=== PATIENT | female | born 1970 | race Caucasian/White ===

== ENCOUNTER 2021-04-04 16:54 | Emergency (ER) | payer MEDICAID ==
--- NOTE | 2021-04-04 17:58 | ED Physician Documentation ---
History of Present Illness - Stated complaint Stated Complaint: BILAT LEG SWELL/LT ARM LUMP;HEADACHE - Chief complaint Chief Complaint: General - History obtained from History obtained from: Patient - History of Present Illness Timing: How many weeks ago (2) - Additonal information Additional information: 50-year-old female who has been avoiding going to the doctor has come in to the emergency department today with a chief complaint that a mass that she has had in her forearm on the left side seems to have grown and has now become painful and pain is radiating up into her arm. She states that she has had this fleshy mass for 2 years and it usually has not caused her much in the way of pain. It is now present and whenever she uses her arm to lift something she can feel the pain there. There is no redness associated with it and no overlying swelling. She has been in to see in an emergency department regarding swelling in her legs and this mass and she has been referred back to her primary. She reports that she does frequently fall asleep with her legs in a dependent position. She has a history of rheumatoid arthritis. Review of Systems Constitutional: denies: Fever Eyes: denies: Decreased vision Ears: denies: Ear pain Nose: denies: Congestion Throat: denies: Sore throat Cardiac: denies: Chest pain / pressure, Palpitations Respiratory: denies: Dyspnea, Cough, Wheezing GI: denies: Abdominal Pain, Nausea, Vomiting, Constipation, Diarrhea : denies: Dysuria, Frequency Skin: denies: Rash Musculoskeletal: reports: Extremity pain. denies: Neck pain, Back pain, Joint swelling Neurologic: denies: Generalized weakness, Focal weakness, Numbness PD PAST MEDICAL HISTORY - Allergies Allergies/Adverse Reactions: Allergies Allergy/AdvReac Type Severity Reaction Status Date / Time Penicillins Allergy Hives Verified 04/04/21 17:07 PD ED PE NORMAL - Vitals Vital signs reviewed: Yes (Normal) - General General: Alert and oriented X 3, No acute distress, Well developed/nourished - HEENT HEENT: Atraumatic, PERRL, EOMI - Respiratory Respiratory: No respiratory distress - Derm Derm: Normal color, Warm and dry, Other (The skin of the hands is thick and leathery. The skin over the forearms appears dry. On the left forearm over the brachial radialis there is a palpable mass 1 cm x 5 cm and there is no fluctuance to this it is fleshy in nature not quite as soft as a lipoma. It is anchored to the underlying tissue) - Extremities Extremities: Other (As above the mass is interrogated with ultrasound it is well-defined with borders to it and appears striated. I am uncertain what this represents it is not a fluid collection it is not a cyst. from brachoradialis to the distal arm volar. Bilat LE edema is trace. ) - Neuro Neuro: Alert and oriented X 3, principal automation engineer 2-12 intact, No motor deficit, No sensory deficit, Normal speech Eye Opening: Spontaneous Motor: Obeys Commands Verbal: Oriented GCS Score: 15 - Psych Psych: Normal mood, Normal affect Results - Vitals Vitals: Vital Signs - 24 hr 04/04/21 04/04/21 04/04/21 17:00 17:46 19:22 Temperature 37.1 C 36.6 C Heart Rate 85 88 68 Respiratory 18 15 14 Rate Blood Pressure 130/80 117/76 108/65 O2 Saturation 99 100 99 Oxygen O2 Source Room air Procedures - Bedside sono Bedside sono by EMP: With use of bedside ultrasound and high-frequency probe the area is interrogated and that there does appear to be a well-circumscribed mass under the arm it is not severely tender there is no surrounding fluid the mass appears striated in a specific pattern. PD MEDICAL DECISION MAKING - ED course Complexity details: reviewed results, re-evaluated patient, considered differential, d/w patient ED course: 42-year-old female presents with 2 problems 1 is a mass that she has in her left forearm and the soft tissue that has become painful over time. It is extended in size over time. I have imaged at the bedside with the bedside ultrasound and I have asked the agricultural service technician to image it for a radiology reading. The patient's lower extremity swelling is likely dependent edema as she states that she does frequently fall asleep in her easy chair. I discussed with the patient the use of compression socks and avoidance of dependent edema. I discouraged the use of diuretic. The reading for the mass in the forearm is not available at the time of shift change and the formal read will be explained to the patient by Dr. Loredo. The area looks benign. Departure - Departure Disposition: 01 Home, Self Care Clinical Impression: Dependent edema, Mass of left forearm Condition: Stable Instructions: ED Edema Legs Bilateral Follow-Up: Gerard Servin MD [Primary Care Provider] -
[2021-04-04 19:24] VITALS: BP 108/65
--- NOTE | 2021-04-04 20:05 | Ultrasound Report ---
PROCEDURE: Ext Limited Non Vascular INDICATIONS: mass under skin on left forearm. TECHNIQUE: Real-time scanning was performed of the left, with image documentation. COMPARISON: None. FINDINGS: In the area of concern in the left arm, there is no solid or cystic mass. No fluid collect ion. No abscess. IMPRESSION: No abnormality in the area of clinical concern. Reviewed by: Zackray Masterson on 04/04/2021 8:03 PM PDT Approved by: Zackary Masterson on 04/04/2021 8:03 PM PDT Station ID: [id number]
== END 2021-04-04 20:10 | disposition home or self-care (01) ==
LOC: ED 16:54
DX: R22.32 Localized swelling, mass and lump, left upper limb (principal); R60.0 Localized edema
CPT/HCPCS: 99284

== ENCOUNTER 2021-06-10 13:50 | Outpatient (CLI) | payer MEDICAID ==
[2021-06-10 14:09] LABS: BASOPHILS # (AUTO) 0.1 10^3/uL (0.0-0.1); BASOPHILS % (AUTO) 0.7 %; EOSINOPHILS # (AUTO) 0.2 10^3/uL (0.0-0.7); EOSINOPHILS % (AUTO) 2.2 %; HCT - HEMATOCRIT 42.2 % (37.0-47.0); HGB - HEMOGLOBIN 14.3 g/dL (12.0-16.0); LYMPHOCYTES % (AUTO) 30.4 %; MEAN CORPUSCULAR HEMOGLOBIN 31.8 pg (27.0-31.0); MEAN CORPUSCULAR HGB CONC 33.9 g/dL (32.0-36.0); MEAN CORPUSCULAR VOLUME 93.8 fL (81.0-99.0); MEAN PLATELET VOLUME 9.2 fL (7.9-10.8); MONOCYTES # (AUTO) 0.6 10^3/uL (0.0-1.0); MONOCYTES % (AUTO) 9.6 %; NEUTROPHILS # (AUTO) 3.8 10^3/uL (1.5-6.6); NEUTROPHILS % (AUTO) 56.8 %; PLT - PLATELET COUNT 371 10^3/uL (130-450); RED CELL DISTRIBUTION WIDTH 12.3 % (12.0-15.0); WHITE BLOOD COUNT 6.7 x10^3/uL (4.8-10.8)
[2021-06-10 14:20] LABS: ALBUMIN 3.9 g/dL (3.2-5.5); ALBUMIN/GLOBULIN RATIO 1.3 (1.0-2.2); BILIRUBIN,TOTAL 0.5 mg/dL (0.2-1.0); CALCIUM 9.3 mg/dL (8.5-10.3); CREATININE 0.8 mg/dL (0.4-1.0); POTASSIUM 4.4 mmol/L (3.5-5.0); TOTAL PROTEIN 6.9 g/dL (6.7-8.2)
[2021-06-10] MEDS ORDERED: GADOBUTROL 10 MMOL/10 ML VIAL ONE (14:22)
[2021-06-10] MEDS: GADOBUTROL 10 MMOL/10 ML VIAL IVP ONE (15:38)
--- NOTE | 2021-06-10 15:59 | MRI Report ---
PROCEDURE: Forearm LT W/WO INDICATIONS: FOREARM MASS TECHNIQUE: Noncontrast coronal T1 spin echo and T2 fast spin echo with fat saturation, axial proton density fast spin echo and T2 fast spin echo with fat saturation, axial T1 spin echo with fat saturation, sagitta l T1 spin echo and STIR through the left forearm Post-contrast axial, coronal, and sagittal T1 spin e cho through the left forearm. A marker was placed in the area of clinical concern. COMPARISON: Reference is made to the soft tissue ultrasound dated April 04, 2021. FINDINGS: Image quality: Excellent. Bones: The visualized bone marrow demonstrates normal signal on all sequences. The overlying cortex appears intact. No fractures lines or intra-osseous lesions. Soft tissues: The scanned muscles demonstrate normal overall bulk and internal signal. Subcutaneous tissues appear normal as well. No soft tissue mass or abnormal contrast enhancement is present. IMPRESSION: 1. No significant abnormality. Reviewed by: Shai Beck MD on 06/10/2021 3:58 PM PST Approved by: Shai Beck MD on 06/10/2021 3:58 PM PST Station ID: [id number]
== END 2021-06-10 13:51 | disposition home or self-care (01) ==
LOC: DI 13:50
PROVIDERS: ATTEND Internal Medicine
DX: R22.30 Localized swelling, mass and lump, unspecified upper limb (principal); M05.6 Rheumatoid arthritis with involvement of other organs and systems
CPT/HCPCS: 36415; 73220; 80053; 83615; 85025; 85651; A9585

== ENCOUNTER 2021-07-16 12:44 | Outpatient (CLI) | payer MEDICAID | END 2021-07-16 12:45 | disposition home or self-care (01) | LOC: LAB.S 12:44 | PROVIDERS: ATTEND Surgery | DX: Z01.812 Encounter for preprocedural laboratory examination (principal); R22.32 Localized swelling, mass and lump, left upper limb; Z20.822 Contact with and (suspected) exposure to COVID-19 ==

== ENCOUNTER 2021-07-17 09:37 | Day surgery (SDC) | payer MEDICAID ==
[2021-07-17] MEDS ORDERED: LACTATED RINGERS 1,000 ML IV ONE ×2 (10:22→13:52)
--- NOTE | 2021-07-17 10:45 | ANESTHESIA ---
Pre-Anesthesia VS, & Labs - Diagnosis painful mass in left forarm - Procedure excison painfull mass left forearm Height: 5 ft 6 in Weight (kg): 67 kg Body Mass Index: 23.8 BMI Classification: Healthy weight - NPO >8 hours - Is Patient ?: No Home Medications and Allergies Home Medications: Ambulatory Orders No Known Home Medications 07/15/21 No Known Home Medications 07/15/21 Allergies/Adverse Reactions: Allergies Allergy/AdvReac Type Severity Reaction Status Date / Time Penicillins Allergy Hives Verified 04/04/21 17:07 Anes History & Medical History - Anesthetic History Anesthesia Complications: reports: Post-Operative Nausea/Vomiting - Medical History Cardiovascular: reports: None Pulmonary: reports: None Gastrointestinal: reports: None Urinary: reports: Other Musculoskeletal: reports: Fibromyalgia, Rheumatoid arthritis Endocrine/Autoimmune: reports: None Skin: reports: None Smoking Status: Current every day smoker - Surgical History General: reports: Cholecystectomy Gynecologic: reports: Hysterectomy Orthopedic: reports: Other (open repair quad rupture) Exam General: Alert Dental: WNL Mouth Opening: Greater than 4 Fingerbreadths Mallampati classification: II Thyromental Distance: greater than 6 cm Respiratory: Lungs clear Cardiovascular: Regular rate Plan Anesthesia Type: General, MAC, Total IV Consent for Procedure(s) Verified and Reviewed: Yes Code Status: Attempt Resuscitation ASA classification: 2-Mild systemic disease Is this case an emergency?: No
[2021-07-17] MEDS ORDERED: LIDOCAINE 2%-EPI 1:100000 20 ML MDV ONE (11:09)
[2021-07-17] MEDS ORDERED: BUPIVACAINE 0.25% PF 30 ML VIAL ONE (11:10)
[2021-07-17] MEDS ORDERED: PROPOFOL 200 MG/20 ML VIAL IVP ONE (11:12)
[2021-07-17] MEDS ORDERED: MIDAZOLAM 2 MG/2 ML VIAL ONE (11:13)
[2021-07-17] MEDS ORDERED: fentaNYL 100 MCG/2 ML VIAL ONE (11:13)
[2021-07-17] MEDS ORDERED: KETAMINE 500 MG/10 ML VIAL ONE (12:14)
[2021-07-17] MEDS ORDERED: LIDOCAINE MPF 1%-EPI 1:200000 30 ML VIAL SUBQ ONE (12:27)
[2021-07-17] MEDS ORDERED: BUPIVACAINE 0.25% PF 30 ML VIAL SUBQ ONE (12:27)
[2021-07-17] MEDS ORDERED: HYDROcod/ACETAM 5/325 MG TABLET PO PRN (12:40)
--- NOTE | 2021-07-17 12:52 | OPERATIVE REPORT ---
Operative Report - General Procedure Date: 07/17/21 Planned Procedure: excision left forearm lipoma Pre-Op Diagnosis: painful left forearm tumor mass/ lipoma Procedure Performed: excision left forearm lipoma Post Op Diagnosis: left forearm lipoma - Procedure Note Primary Surgeon: srikanth trejo Anesthesia Technique: Local MAC Pathology: sent Estimated Blood Loss (mL): 0 Drain/Tube Type: Other (none) Indications: painful mass Complications: none - Other Other Information/Narrative: The patient was properly identified brought to the operating room and placed in supine position. Prior to surgery she was at times having exquisite pain. She was having on occasion shooting pain going from the mass up towards her shoulder. This caused her significant discomfort to the point where she would drop a cup. She has also been seen in the emergency department given the sharp shooting pain. Even though the mass was small it was giving her significant distress and concern. Left arm was placed on an armboard. She was prepped and draped in a sterile fashion. Antibiotics were not given. A vertical kat had previously been placed over the left forearm tumor. Local anesthetic was given to the area. A 1.5 cm vertical incision was made directly over the painful tumor or lipoma. Dissection proceeded down to the lipoma. It was gently mobilized with sharp dissection. It was removed in its entirety. Hemostasis was assured. Given the likely proximity of a superficial subcutaneous nerve subcutaneous tissue was not closed. Buried interrupted subdermal 3-0 Vicryl sutures were placed. Skin was closed with a running 4-0 Monocryl subcuticular suture. Steri-Strips and dressing were applied. He tolerated the procedure well.
[2021-07-17 13:23] VITALS: BP 108/72
--- NOTE | 2021-07-17 14:24 | ANESTHESIA POST OP EVALUATION ---
Anesthesia Post Eval - Post Anesthesia Eval Vitals: Last Vital Signs Temp 36.3 C L 07/17/21 13:22 Pulse 73 07/17/21 13:22 Resp 18 07/17/21 13:22 BP 108/72 07/17/21 13:22 Pulse Ox 100 07/17/21 13:22 CV Function Including HR & BP: Stable Pain Control: Satisfactory Nausea & Vomiting: Negative Mental Status: Baseline Respiratory Status: Airway Patent Hydration Status: Satisfactory Anesthesia Complications: None
== END 2021-07-17 09:38 | disposition home or self-care (01) ==
LOC: SDS 09:37
PROVIDERS: ATTEND Surgery
PROC: 0JBH0ZZ Excision of Left Lower Arm Subcutaneous Tissue and Fascia, Open Approach (ICD-10-PCS; principal; 2021-07-17 10:30)
DX: D17.22 Benign lipomatous neoplasm of skin and subcutaneous tissue of left arm (principal)
CPT/HCPCS: 11402; 12031; J7120

== ENCOUNTER 2022-02-13 08:00 | Outpatient (CLI) | payer MEDICAID ==
--- NOTE | 2022-02-13 16:08 | XRAY Report ---
PROCEDURE: Foot 3 View LT INDICATIONS: LEFT FOOT PAIN TECHNIQUE: 3 views of the foot were acquired. COMPARISON: None FINDINGS: Bones: Moderate first MTP arthrosis. Mild arthrosis seen in the other joints. No acute fracture or di slocation. Hallux valgus alignment. Soft tissues: No tibiotalar joint effusion. Achilles tendon appears normal. IMPRESSION: Moderate first MTP arthrosis with hallux valgus alignment. Mild arthrosis elsewhere. No acute radiogr aphic abnormality. If there is high concern for occult injury, consider cross-sectional imaging. Reviewed by: King Paul MD on 02/13/2022 4:06 PM PDT Approved by: King Paul MD on 02/13/2022 4:06 PM PDT Station ID: [id number]
--- NOTE | 2022-02-13 16:09 | XRAY Report ---
PROCEDURE: Ankle 3 View LT INDICATIONS: LEFT ANKLE PAIN TECHNIQUE: 3 views of the ankle were acquired. COMPARISON: None FINDINGS: Bones: No fractures or dislocations. Ankle mortise is normally aligned. No suspicious bony lesions . Mild scattered arthrosis. Soft tissues: No tibiotalar joint effusion. Achilles tendon appears normal. IMPRESSION: No acute radiographic abnormality. Consider cross-sectional imaging if there is high con cern for occult injury. Reviewed by: King Paul MD on 02/13/2022 4:08 PM PDT Approved by: King Paul MD on 02/13/2022 4:08 PM PDT Station ID: [id number]
== END 2022-02-13 08:01 | disposition home or self-care (01) ==
LOC: DI.S 08:00
PROVIDERS: ATTEND Physician Assistant
DX: M19.072 Primary osteoarthritis, left ankle and foot (principal); M20.12 Hallux valgus (acquired), left foot

== ENCOUNTER 2022-09-02 07:00 | Outpatient (CLI) | payer MEDICAID ==
--- NOTE | 2022-09-02 11:43 | XRAY Report ---
PROCEDURE: Elbow 3 View LT INDICATIONS: CONTUSION OF LEFT ELBOW TECHNIQUE: 3 views of the elbow were acquired. COMPARISON: None. FINDINGS: Bones: No fractures or dislocations. No suspicious bony lesions. Soft tissues: No elbow joint effusion. No suspicious soft tissue calcifications. IMPRESSION: No acute osseous abnormalities. If clinical symptoms persist, consider a repeat examination or advanc ed imaging such as CT or MRI. Reviewed by: Kira Willis MD on 09/02/2022 11:42 AM PDT Approved by: Kira Willis MD on 09/02/2022 11:42 AM PDT Station ID: [id number]
--- NOTE | 2022-09-02 11:45 | XRAY Report ---
PROCEDURE: Ankle 3 View RT INDICATIONS: History of fall. Ankle pain. TECHNIQUE: . 3 views of the ankle were acquired. COMPARISON: None FINDINGS: Bones: No fractures or dislocations. Ankle mortise is normally aligned. No suspicious bony lesions . Mild degenerative joint disease is present. Soft tissues: No tibiotalar joint effusion. Achilles tendon appears normal. IMPRESSION: No acute osseous abnormality. If clinical symptoms persist, consider repeat examination or advanced imaging such as CT or MRI. Reviewed by: Kira Willis MD on 09/02/2022 11:44 AM PDT Approved by: Kira Willis MD on 09/02/2022 11:44 AM PDT Station ID: [id number]
--- NOTE | 2022-09-02 11:48 | XRAY Report ---
PROCEDURE: Knee 3 View LT INDICATIONS: CONTUSION OF LEFT KNEE TECHNIQUE: 3 views of the left knee(s) were acquired. COMPARISON: None. FINDINGS: Bones: No fractures or dislocations. No suspicious bony lesions. Soft tissues: Small knee joint effusion. No suspicious soft tissue calcifications. Prominent soft tissue swelling over the medial knee joint. IMPRESSION: 1. No definitive acute osseous abnormality. 2. Soft tissue swelling over the medial aspect of the knee joint. Question MCL injury. 3. Small knee joint effusion. 4. If there is clinical concern for internal derangement, MRI is recommended. Reviewed by: Kira Willis MD on 09/02/2022 11:47 AM PDT Approved by: Kira Willis MD on 09/02/2022 11:47 AM PDT Station ID: [id number]
--- NOTE | 2022-09-02 11:49 | XRAY Report ---
PROCEDURE: Foot 3 View RT INDICATIONS: CONTUSION OF RIGHT FOOT TECHNIQUE: 3 views of the foot were acquired. COMPARISON: None. FINDINGS: Bones: No fractures or dislocations. No suspicious bony lesions. Mild degenerative joint disease. Soft tissues: No tibiotalar joint effusion. Achilles tendon appears normal. IMPRESSION: No acute osseous amenities. If clinical symptoms persist, consider repeat examination or advanced [place] ging such as CT or MRI. Reviewed by: Kira Willis MD on 09/02/2022 11:48 AM PDT Approved by: Kira Willis MD on 09/02/2022 11:48 AM PDT Station ID: [id number]
== END 2022-09-02 07:01 | disposition home or self-care (01) ==
LOC: DI.S 07:00
PROVIDERS: ATTEND Physician Assistant Medical
DX: S50.02XA Contusion of left elbow, initial encounter (principal); S90.31XA Contusion of right foot, initial encounter; M25.571 Pain in right ankle and joints of right foot; M25.462 Effusion, left knee; S80.02XA Contusion of left knee, initial encounter

== ENCOUNTER 2022-10-08 21:42 | Outpatient (CLI) | payer MEDICAID | END 2022-10-08 21:43 | disposition short-term general hospital (02) | LOC: EMS 21:42 | DX: R51.9 Headache, unspecified (principal); R60.0 Localized edema; H57.13 Ocular pain, bilateral | CPT/HCPCS: A0425; A0429; A0999 ==

== ENCOUNTER 2023-05-27 07:00 | Outpatient (CLI) | payer MEDICAID ==
--- NOTE | 2023-05-27 15:31 | XRAY Report ---
PROCEDURE: Lumbar Spine 2 View INDICATIONS: LUMBAR SPRAIN TECHNIQUE: 3 views of the lumbar spine were acquired. COMPARISON: None. FINDINGS: Bones: 5 [id number] vertebrae are present. Multilevel disc space narrowing and endplate osteop hyte formation, as well as facet hypertrophy. There is normal bony alignment. No vertebral body comp ression fractures. No suspicious bony lesions. Soft tissues: Overlying bowel gas pattern is normal. No suspicious soft tissue calcifications. IMPRESSION: 1. Multilevel degenerative disc and facet disease. No acute fracture. No osseous lesion. If symptoms and/or clinical suspicion for pathology continue, further assessment with repeat plain films, or adva nced imaging (e.g., CT, MRI, or bone scan) is recommended for further assessment. Reviewed by: Flo Verma MD on 05/27/2023 3:30 PM PST Approved by: Flo Verma MD on 05/27/2023 3:30 PM PST Station ID: [id number]
== END 2023-05-27 23:59 | disposition home or self-care (01) ==
LOC: DI.S 07:00
PROVIDERS: ATTEND Physician Assistant Medical
DX: M47.816 Spondylosis without myelopathy or radiculopathy, lumbar region (principal); M51.36 Other intervertebral disc degeneration, lumbar region

== ENCOUNTER 2023-09-09 09:39 | Day surgery (SDC) | payer MEDICAID ==
[2023-09-09] MEDS: LACTATED RINGERS 1,000 ML IV ONE (10:18)
[2023-09-09] MEDS ORDERED: LIDOCAINE 1%-EPI 1:100000 20 ML MDV ONE (10:29)
[2023-09-09] MEDS ORDERED: BUPIVACAINE 0.25% PF 30 ML VIAL ONE (10:29)
--- NOTE | 2023-09-09 10:38 | ANESTHESIA ---
Pre-Anesthesia VS, & Labs - Diagnosis painful left forearm mass - Procedure excision of painful left forearm mass Vital Signs: Temp Pulse Resp BP Pulse Ox O2 Flow Rate 36.6 C 77 16 111/74 95 09/09/23 09:56 09/09/23 09:56 09/09/23 09:56 09/09/23 09:56 09/09/23 09:56 Height: 5 ft 6 in Weight (kg): 64.6 kg Body Mass Index: 22.9 BMI Classification: Normal - NPO >8 hours - Is Patient ?: No Home Medications and Allergies Home Medications: Ambulatory Orders Difluprednate 1 drops EACHEYE QID PRN 09/02/23 Folic Acid 1 mg PO DAILY 09/02/23 Methotrexate Sodium/Pf [Methotrexate 25 mg/ml Vial] 15 mg SUBQ OAW 09/02/23 Montelukast [Singulair] 10 mg PO QPM 09/02/23 Difluprednate 1 drops EACHEYE QID PRN 09/02/23 Folic Acid 1 mg PO DAILY 09/02/23 Methotrexate Sodium/Pf [Methotrexate 25 mg/ml Vial] 15 mg SUBQ OAW 09/02/23 Montelukast [Singulair] 10 mg PO QPM 09/02/23 Allergies/Adverse Reactions: Allergies Allergy/AdvReac Type Severity Reaction Status Date / Time Penicillins Allergy Hives Verified 09/08/23 13:40 Anes History & Medical History - Anesthetic History Anesthesia Complications: reports: Post-Operative Nausea/Vomiting - Medical History Cardiovascular: reports: None Pulmonary: reports: None Gastrointestinal: reports: None Urinary: reports: None Musculoskeletal: reports: Fibromyalgia, Rheumatoid arthritis, Chronic back pain Endocrine/Autoimmune: reports: None Skin: reports: None Smoking Status: Current every day smoker (1/2 pack per day) Psychosocial: reports: No issues indicated History of Cancer?: No - Surgical History General: reports: Cholecystectomy, Other Gynecologic: reports: Hysterectomy Orthopedic: reports: Other Exam General: Alert, Oriented x3, Cooperative, No acute distress Dental: WNL Mouth Openin Fingerbreadth Neck Mobility: Normal Mallampati classification: III Thyromental Distance: 4-6 cm Mental/Cognitive Status: Alert/Oriented X3, Normal for patient Plan Anesthesia Type: General (IV general vs mac), MAC Consent for Procedure(s) Verified and Reviewed: Yes Code Status: Attempt Resuscitation ASA classification: 2-Mild systemic disease Is this case an emergency?: No
[2023-09-09] MEDS ORDERED: LIDOCAINE-PF 2% 10 ML AMP SUBQ ONE (10:58)
[2023-09-09] MEDS ORDERED: MIDAZOLAM 2 MG/2 ML VIAL ONE (10:58)
[2023-09-09] MEDS ORDERED: fentaNYL 100 MCG/2 ML VIAL ONE (10:58)
[2023-09-09] MEDS ORDERED: PROPOFOL 200 MG/20 ML VIAL IVP ONE (11:00)
--- NOTE | 2023-09-09 11:05 | HISTORY & PHYSICAL EXAMINATION ---
Chief Complaint - Chief Complaint Chief Complaint: painful left arm lump History of Present Illness - History Obtained From Records Reviewed: yes History obtained from: pt Exam Limitations: none - History of Present Illness HPI Comment/Other: recurrent painful left arm lump History - Past Medical History Cardiovascular: reports: None Respiratory: reports: None Endocrine/Autoimmune: reports: None GI: reports: None : reports: None HEENT: reports: Other Musculoskeletal: reports: Fibromyalgia, Rheumatoid arthritis, Chronic back pain Derm: reports: None MRSA Hx?: No - Past Surgical History General: reports: Cholecystectomy, Other Ortho: reports: Other /RACKET [employer]INGER: reports: Hysterectomy Meds/Allgy - Home Medications Home Medications: Ambulatory Orders Medication Instructions Recorded Confirmed Difluprednate 1 drops EACHEYE QID PRN 09/02/23 09/09/23 Folic Acid 1 mg PO DAILY 09/02/23 09/09/23 Methotrexate Sodium/Pf 15 mg SUBQ OAW 09/02/23 09/09/23 [Methotrexate 25 mg/ml Vial] Montelukast [Singulair] 10 mg PO QPM 09/02/23 09/02/23 - Allergies Allergies/Adverse Reactions: Allergies Allergy/AdvReac Type Severity Reaction Status Date / Time Penicillins Allergy Hives Verified 09/08/23 13:40 Review of Systems - Other Findings Other Findings: 10 pt ros as above otherwise unremarkable Exam - Vital Signs Vital Signs: Vital Signs x48h Temp Pulse Resp BP Pulse Ox 09/09/23 09:56 36.6 C 77 16 111/74 95 - Physical Exam General Appearance: positive: No acute distress, Alert Eyes Bilateral: positive: PERRL ENT: positive: No signs of dehydration Neck: positive: No JVD Respiratory: positive: No respiratory distress Cardiovascular: positive: Regular rate & rhythm Extremities: positive: Other (left forearm tender 1.5 cm mass subcutaneous) Neurologic/Psychiatric: positive: Oriented x3 Conclusion/Plan - Problem List (1) Mass of left forearm Conclusion/Plan: plan excision with negative margin. send to path. piero held and consent obtained
[2023-09-09] MEDS: LIDOCAINE 1%-EPI 1:100000 50 ML VIAL SUBQ ONE (11:38)
[2023-09-09] MEDS: BUPIVACAINE 0.25% PF 30 ML VIAL SUBQ ONE (11:38)
[2023-09-09] MEDS: LACTATED RINGERS 400 ML IV ONE (11:54)
--- NOTE | 2023-09-09 12:04 | OPERATIVE REPORT ---
Operative Report - General Procedure Date: 09/09/23 Planned Procedure: excision recurrent left forearm subcutaneous mass/ lipoma Pre-Op Diagnosis: painful recurrent left forearm 1.5 cm subcutaneous mass Procedure Performed: excision 1.5 cm recurrent lipoma 1.5 cm intermediate repair Post Op Diagnosis: same - Procedure Note Primary Surgeon: srikanth trejo Anesthesia Technique: Local MAC Pathology: left forearm recurrent mass/ lipoma Estimated Blood Loss (mL): 0 Drain/Tube Type: Other (none) Indications: painful arm lump Findings: encapsulated benign appearing lipoma Complications: none - Other Other Information/Narrative: The patient was prepped identified brought to the operating room and placed in supine position. Monitored anesthesia care and IV sedation was given. She was prepped and draped in a sterile fashion. Antibiotics were not given. She had excision of a 1.5 cm benign encapsulated lipoma approximately 2 years earlier. It has recurred and it again is about 1.5 cm and is quite tender and painful. Local anesthetic was given. An elliptical incision was made removing the old scar. A small margin of normal tissue was taken in addition to the encapsulated 1.5 cm lipoma. Hemostasis was assured. Subcutaneous tissue was closed with interrupted 3-0 Vicryl suture. Buried interrupted subdermal 3-0 Vicryl sutures were then placed. Epidermis was closed with a running 4-0 Monocryl. Steri- Strips and dressing were applied. He tolerated the procedure well was awakened and brought to recovery in good condition
[2023-09-09 12:07] VITALS: O2SAT 98
--- NOTE | 2023-09-09 12:07 | ANESTHESIA POST OP EVALUATION ---
Anesthesia Post Eval - Post Anesthesia Eval Vitals: Last Vital Signs Temp 36.4 C L 09/09/23 11:54 Pulse 71 09/09/23 11:54 Resp 16 09/09/23 11:54 BP 113/71 09/09/23 11:54 Pulse Ox 98 09/09/23 11:54 O2 Flow Rate CV Function Including HR & BP: Stable Pain Control: Satisfactory Nausea & Vomiting: Negative Mental Status: Baseline Respiratory Status: Airway Patent Hydration Status: Satisfactory Anesthesia Complications: None
[2023-09-09 12:18] VITALS: BP 116/73
[2023-09-09] MEDS ORDERED: HYDROcod/ACETAM 5/325 MG TABLET ONE (12:23)
[2023-09-09] MEDS: HYDROcod/ACETAM 5/325 MG TABLET PO PRN (12:29)
== END 2023-09-09 09:40 | disposition home or self-care (01) ==
LOC: SDS 09:39
PROVIDERS: ATTEND Surgery
PROC: 0JBH0ZX Excision of Left Lower Arm Subcutaneous Tissue and Fascia, Open Approach, Diagnostic (ICD-10-PCS; principal; 2023-09-09 10:30)
DX: R22.32 Localized swelling, mass and lump, left upper limb (principal); D17.22 Benign lipomatous neoplasm of skin and subcutaneous tissue of left arm; F17.210 Nicotine dependence, cigarettes, uncomplicated; M79.7 Fibromyalgia; M06.9 Rheumatoid arthritis, unspecified
CPT/HCPCS: 25075; A9270; J3490; J7120

== ENCOUNTER 2023-10-27 11:30 | Emergency (ER) | payer MEDICAID ==
[2023-10-27 11:38] VITALS: BP 149/87; O2SAT 99
--- NOTE | 2023-10-27 11:56 | ED Physician Documentation ---
PD HPI UPPER EXT INJURY - Stated complaint Stated Complaint: RT HAND INJ - Chief complaint Chief Complaint: Trauma Ext - History obtained from History obtained from: Patient - History of Present Illness Location: Right - Additonal information Additional information: She was installing some shelving last night and got her hand crushed by a board in the closet. It is her dominant right hand. Pain is moderate. No other injuries. PD PAST MEDICAL HISTORY - Past Medical History Past Medical History: Yes Cardiovascular: None Respiratory: None Endocrine/Autoimmune: None GI: None : None HEENT: Other Musculoskeletal: Fibromyalgia, Rheumatoid arthritis, Chronic back pain Derm: None - Past Surgical History Past Surgical History: Yes General: Cholecystectomy, Other Ortho: Other /CARDIAC TECHNOLOGIST: Hysterectomy - Present Medications Home Medications: Ambulatory Orders Medication Instructions Recorded Confirmed Difluprednate 1 drops EACHEYE QID PRN 09/02/23 09/09/23 Folic Acid 1 mg PO DAILY 09/02/23 09/09/23 Methotrexate Sodium/Pf 15 mg SUBQ OAW 09/02/23 09/09/23 [Methotrexate 25 mg/ml Vial] Montelukast [Singulair] 10 mg PO QPM 09/02/23 09/02/23 - Allergies Allergies/Adverse Reactions: Allergies Allergy/AdvReac Type Severity Reaction Status Date / Time Penicillins Allergy Hives Verified 10/27/23 11:33 - Social History Does the pt smoke?: Yes Smoking Status: Current every day smoker Does the pt drink ETOH?: No Does the pt have substance abuse?: No - Immunizations Immunizations are current?: Yes - POLST Patient has POLST: No PD ED PE NORMAL - Vitals Vital signs reviewed: Yes - General General: Alert and oriented X 3, No acute distress - Derm Derm: Normal color, Warm and dry - Extremities Extremities: Other (Tender and swollen but without deformity of the third through fifth proximal phalanges. Limited range of motion due to pain. No distal neurovascular compromise.) Results - Vitals Vitals: Vital Signs - 24 hr 10/27/23 10/27/23 11:33 12:23 Temperature 36.5 C Heart Rate 90 Respiratory 16 17 Rate Blood Pressure 149/87 H O2 Saturation 99 Oxygen O2 Source Room air - Rads (name of study) Three-view x-ray of the right hand was negative Relevant Findings:: Final report received, EMP independent interpretation of test Departure - Departure Disposition: Home, Self Care Clinical Impression: Crushing injury of right hand Qualifiers: Encounter type: initial encounter Qualified Code(s): S67.21XA - Crushing injury of right hand, initial encounter Condition: Good Record reviewed to determine appropriate education?: Yes Instructions: ED Crush Injury Finger No Fx Comments: No fracture obvious on x-ray. Return if you worsen. Ice and elevate. Follow- up with your doctor in a week if not better. Forms: PCP List Discharge Date/Time: 10/27/23 12:24
[2023-10-27] MEDS: IBUPROFEN 600 MG TABLET PO STA (11:59)
--- NOTE | 2023-10-27 12:02 | XRAY Report ---
PROCEDURE: Hand 3+V RT INDICATIONS: Trauma TECHNIQUE: 3 views of the hand(s) acquired. COMPARISON: None. FINDINGS: Bones: No fractures or dislocations. Second through fifth digits are mildly flexed. No suspicious b karyn lesions. Soft tissues: No suspicious soft tissue calcifications or masses. IMPRESSION: No acute bony abnormality. If pain persists with conservative management, consider repeat radiographs in 10-14 days or cross-sectional imaging. Reviewed by: Caden Antony MD on 10/27/2023 12:01 PM PDT Approved by: aCden Antony MD on 10/27/2023 12:01 PM PDT Station ID: [id number]
[2023-10-27] MEDS: ACETAMINOPHEN 500 MG TABLET PO STA (12:15)
== END 2023-10-27 12:24 | disposition home or self-care (01) ==
LOC: ED 11:30
DX: S67.21XA Crushing injury of right hand, initial encounter (principal); W20.8XXA Other cause of strike by thrown, projected or falling object, initial encounter; Y93.H3 Activity, building and construction; F17.200 Nicotine dependence, unspecified, uncomplicated
CPT/HCPCS: 73130; 99283; A9270

== ENCOUNTER 2024-02-16 14:37 | Emergency (ER) | payer MEDICAID ==
--- NOTE | 2024-02-16 20:11 | ED Physician Documentation ---
PD HPI OPHTHO - Stated complaint Stated Complaint: RED EYE PX,SWELLING,RODRIGUEZ,NAUSEA - Chief complaint Chief Complaint: Heent - Additional information Additional information: 53-year-old female presents emergency department for left eye scleritis. Patient said That yesterday she was started on steroid drops by her hazmat cdl driver and pain has increased in severity to the point where now she feels like a sharp shooting radiating throughout her entire face and she woke up with left facial swelling. She has pain with any sort of extraocular movement as she is unsure if shes had any fevers or chills. 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 : None HEENT: Other Psych: None Musculoskeletal: Fibromyalgia, Rheumatoid arthritis, Chronic back pain Derm: None - Past Surgical History Past Surgical History: Yes General: Cholecystectomy, Other Ortho: Other /HYDRAULIC ELEVATOR CONSTRUCTOR: Hysterectomy - Present Medications Home Medications: Ambulatory Orders Medication Instructions Recorded Confirmed Difluprednate 1 drops EACHEYE QID PRN 09/02/23 09/09/23 Folic Acid 1 mg PO DAILY 09/02/23 09/09/23 Methotrexate Sodium/Pf 15 mg SUBQ OAW 09/02/23 09/09/23 [Methotrexate 25 mg/ml Vial] Montelukast [Singulair] 10 mg PO QPM 09/02/23 09/02/23 - Allergies Allergies/Adverse Reactions: Allergies Allergy/AdvReac Type Severity Reaction Status Date / Time Penicillins Allergy Hives Verified 02/16/24 14:58 - Social History Does the pt smoke?: Yes Smoking Status: Current every day smoker Does the pt drink ETOH?: No Does the pt have substance abuse?: No - Immunizations Immunizations are current?: Yes - POLST Patient has POLST: No PD ED PE NORMAL - Vitals Vital signs reviewed: Yes - General General: Alert and oriented X 3, Well developed/nourished, Other (acute pain to left eue) PD ED PE EXPANDED - HEENT HEENT: PERRL, EOMI (pain with left eye extraocular movement), Moist mucous membranes, Other - Eyes Eyes: PERRL, EOMI, Left eye (unreadable IOP), Normal eyelids (left eyelid swelling), No eyelid FB (everted), Injected conj/sclera, Other (left eye chemosis) Results - Vitals Vitals: Vital Signs - 24 hr 02/16/24 02/16/24 02/16/24 14:49 17:58 19:26 Temperature 36.9 C 37.1 C Heart Rate 91 79 68 Respiratory 16 16 Rate Blood Pressure 124/79 108/81 H 133/80 H O2 Saturation 100 100 100 02/16/24 21:00 Temperature Heart Rate 53 L Respiratory Rate Blood Pressure 159/83 H O2 Saturation 100 Oxygen O2 Source Room air - Labs Labs: Laboratory Tests 02/16/24 02/16/24 20:34 20:34 WBC 6.3 RBC 4.43 Hgb 14.0 Hct 42.2 MCV 95.3 MCH 31.6 H MCHC 33.2 RDW 12.4 Plt Count 379 MPV 9.1 Neut # (Auto) 3.1 Lymph # (Auto) 2.4 Graham # (Auto) 0.6 Eos # (Auto) 0.1 Baso # (Auto) 0.0 Absolute Nucleated RBC 0.00 Nucleated RBC % 0.0 Sodium 139 Potassium 3.8 Chloride 102 Carbon Dioxide 31 Anion Gap 6.0 BUN 12 Creatinine 0.8 Estimated GFR (MDRD) 76 L Glucose 86 Calcium 9.2 Magnesium 1.8 Total Bilirubin 0.3 AST 12 ALT 9 L Alkaline Phosphatase 59 Total Protein 6.6 Albumin 3.9 Globulin 2.7 Albumin/Globulin Ratio 1.4 Lipase 42 PD Medical Decision Making - ED course ED course: 53-year-old female presents emergency department for severe left eye pain. There is pain with extraocular movement and she has chemosis to the left sclera. Originally intraocular pressure was unreadable right eye ocular pressure was 30. I spoke with [facility] loss prevention associate Dr. Eller. Previous concern for orbital cellulitis and also intraocular pressure he recommended eyedrops to patient's left eye for the increased intraocular pressure. Patient was given brimonidine 0.2% to left eye 1 drop every 5 minutes for a total of 3 drops, dorzolamide timolol, 1 drop for a total of 3 drops also to left eye and brimonidine 3 drops to left eye, these were all completed 5 minutes apart. Patient was also given acetazolamide as well as Zofran and hydromorphone for pain control. Emergent maxillofacial CT was complete and revealed mild left periorbital subcutaneous stranding most likely due to cellulitis with no organized fluid collection, no postseptal edema was identified. Patient will be transferred to [facility] for further evaluation of patient's severe left eye pain with possible orbital versus preseptal cellulitis as she has been seen by them multiple times as well as hospitalized with them multiple times for similar issues. Patient is agreeable to transfer. Departure - Departure Disposition: 02 Transfer Acute Care Hosp Clinical Impression: Orbital cellulitis on left Forms: PCP List
[2024-02-16] MEDS: HYDROmorphone 0.5 MG/0.5 ML SYRINGE IVP STA ×2 (20:38→22:42)
[2024-02-16 20:48] LABS: BASOPHILS % (AUTO) 0.5 %; EOSINOPHILS # (AUTO) 0.1 10^3/uL (0.0-0.7); EOSINOPHILS % (AUTO) 1.9 %; HCT - HEMATOCRIT 42.2 % (37.0-47.0); LYMPHOCYTES # (AUTO) 2.4 10^3/uL (1.5-3.5); LYMPHOCYTES % (AUTO) 38.8 %; MEAN CORPUSCULAR HEMOGLOBIN 31.6 pg (27.0-31.0); MEAN CORPUSCULAR HGB CONC 33.2 g/dL (32.0-36.0); MEAN CORPUSCULAR VOLUME 95.3 fL (81.0-99.0); MEAN PLATELET VOLUME 9.1 fL (7.9-10.8); MONOCYTES # (AUTO) 0.6 10^3/uL (0.0-1.0); MONOCYTES % (AUTO) 9.5 %; NEUTROPHILS # (AUTO) 3.1 10^3/uL (1.5-6.6); NEUTROPHILS % (AUTO) 49.1 %; PLT - PLATELET COUNT 379 10^3/uL (130-450); RED BLOOD COUNT 4.43 10^6/uL (4.20-5.40); RED CELL DISTRIBUTION WIDTH 12.4 % (12.0-15.0); WHITE BLOOD COUNT 6.3 x10^3/uL (4.8-10.8)
[2024-02-16] MEDS ORDERED: DORZOLAMIDE/TIMOLOL OPHTH DROPS LEFTEYE SCH (21:00)
[2024-02-16] MEDS ORDERED: LATANOPROST 0.005% OPHTH DROPS LEFTEYE SCH (21:00)
[2024-02-16 21:09] LABS: ALBUMIN 3.9 g/dL (3.2-5.5); ALBUMIN/GLOBULIN RATIO 1.4 (1.0-2.2); BILIRUBIN,TOTAL 0.3 mg/dL (0.2-1.0); CALCIUM 9.2 mg/dL (8.5-10.3); CREATININE 0.8 mg/dL (0.6-1.3); MAGNESIUM 1.8 mg/dL (1.7-2.3); POTASSIUM 3.8 mmol/L (3.5-4.5); TOTAL PROTEIN 6.6 g/dL (6.4-8.9)
[2024-02-16] MEDS: LATANOPROST 0.005% OPHTH DROPS LEFTEYE STA (21:32)
[2024-02-16] MEDS: DORZOLAMIDE/TIMOLOL OPHTH DROPS LEFTEYE STA (21:32)
[2024-02-16] MEDS: acetaZOLAMIDE 250 MG TABLET PO STA (21:32)
[2024-02-16] MEDS: BRIMONIDINE 0.2% OPHTH DROPS 5 ML LEFTEYE STA (21:33)
--- NOTE | 2024-02-16 21:46 | CT Report ---
PROCEDURE: Maxillofacial WO INDICATIONS: left facial swelling TECHNIQUE: Noncontrast 1.5 mm thick axial images acquired from the mandible through the frontal sinuses, with co casey and sagittal reformatting. For radiation dose reduction, the following was used: automated ex posure control, adjustment of mA and/or kV according to patient size. COMPARISON: None. FINDINGS: Image quality: Excellent. Bones and teeth: Orbital lucero are intact. Sinus lucero show no fracture or deformity. Nasal bones and septum are intact. Visualized portions of the mandible demonstrate no fractures or subluxation. Zygomatic arches are intact. Pterygoid plates are intact. Visualized portions of the skull base an d auditory canals are intact. Sinuses: Paranasal sinuses are aerated, without fluid levels, mucosal thickening, or mucoceles. Mas toid air cells are aerated. Soft tissues: Mild left periorbital subcutaneous stranding. No enlarged lymph nodes. No soft tissue lacerations or debris. Vascular: Visualized vascular structures appear normal in the absence of contrast. Bony vascular fo ramina and canals are intact. IMPRESSION: Mild left periorbital subcutaneous stranding, may represent cellulitis. Recommend clinic al correlation. No organized fluid collections. No postseptal edema is identified.. Reviewed by: Shaun Yoo MD on 02/16/2024 9:45 PM PDT Approved by: Shaun Yoo MD on 02/16/2024 9:45 PM PDT Station ID: [id number]
[2024-02-16] MEDS ORDERED: BRIMONIDINE 0.2% OPHTH DROPS 5 ML LEFTEYE SCH (22:00)
[2024-02-16] MEDS: HYDROmorphone 1 MG/ML CARPUJECT IVP STA (22:35)
[2024-02-16] MEDS: ONDANSETRON 4 MG/2 ML VIAL IVP STA (22:42)
[2024-02-16 23:50] VITALS: BP 122/68; O2SAT 98
[2024-02-17] MEDS ORDERED: acetaZOLAMIDE 250 MG TABLET PO SCH (09:00)
== END 2024-02-16 23:51 | disposition short-term general hospital (02) ==
LOC: ED 14:37
DX: H05.012 Cellulitis of left orbit (principal); F17.200 Nicotine dependence, unspecified, uncomplicated
CPT/HCPCS: 36415; 70486; 80053; 83690; 83735; 85025; 96374; 96376; 99284; 99285; A9270; J1170